=== PATIENT | female | born 1955 | race Caucasian/White ===

== ENCOUNTER 2017-01-10 19:30 | Emergency (ER) | payer OTHER ==
[~2017-01-10] VITALS: Ht 160 cm; Wt 67.5 kg
[~2017-01-10 19:30] MED LIST: AMLO1CAP6 PO; CLON-379 PO; SYN75 PO
[2017-01-10 19:33] VITALS: Ht 160 cm; Wt 67.5 kg
--- NOTE | 2017-01-10 20:56 | RADRPT ---
PROCEDURE: XR Chest. CLINICAL INDICATION: Chest pain after a fall. TECHNIQUE: Single frontal view of the chest was obtained. COMPARISON: None FINDINGS: The soft tissues are normal. Film is underpenetrated which limits bone detail. A rib fracture is s uspected, a rib series should be performed. The heart, cardiomediastinal silhouette and hilar struc tures are normal. The pulmonary vasculature is normal. There is a left-sided aorta. There is atelec tasis in the right lower lobe. No pneumothorax is identified. The costophrenic angles are poorly v isualized and pleural effusions are not excluded. IMPRESSION: 1. Limited chest x-ray due to underpenetration of the film. 2. Right middle and right lower lobe atelectasis. 3. No pneumothorax is identified. Small pleural effusions hemathoraces or rib fracture are not exc luded in this setting. RPTAT:AAJJ Physician Franc Date Time Electronically viewed and signed by Physician Franc on 01/10/2017 20:56 JARRELL/
--- NOTE | 2017-01-10 21:01 | RADRPT ---
PROCEDURE: XR ribs . CLINICAL INDICATION: Chest wall pain after a fall. TECHNIQUE: AP and oblique views of the right ribs were obtained. COMPARISON: None FINDINGS: There is apparent elevation of the right diaphragm. The bony elements are rarefied. No pneumothora x is identified. No acute rib fracture is noted but portions of the ribs are poorly visualized due to underpenetration of the radiograph. No pleural effusion is noted. IMPRESSION: 1. Expiratory phase radiograph with elevation of the right diaphragm. 2. No rib fracture or pneumothorax is identified. 3. Rarefaction of the bony elements. 4. The lower right ribs are not fully evaluated on this study due to underpenetration of the radiog raph. RPTAT:AAJJ Physician Franc Date Time Electronically viewed and signed by Physician Franc on 01/10/2017 21:00 JARRELL/
[2017-01-10] MEDS ORDERED: NAPR-260 PO (21:08)
--- NOTE | 2017-01-10 21:34 | ERD ---
ER Documentation Chief Complaint Date/Time DATE: 01/10/17 TIME: 21:30 Chief Complaint sp ground level fall since 3 days ago, back pain, right uper rib pain HPI Patient is a 7-year-old female with past medical history of hypertension and hypothyroidism who presents to the ED with right sided chest wall pain and rib pain after sustaining a fall 3 days ago. Patient states that she was carrying her purse and tripped over the sidewalk and fell on her right side. She denies hitting her head, passing out or losing consciousness. Denies headache or dizziness. States that she has pain on the right side of her ribs. She states that when she takes a deep breath and she has pain. Denies chest pain or difficulty breathing or shortness of breath. Denies abdominal pain, nausea, vomiting or diarrhea. She is taking Tylenol and Voltaren gel which is helped with her symptoms. Denies leg pain or leg swelling. She has no other complaints per ROS All systems reviewed and are negative except as per history of present illness. Medications Home Meds Active Scripts Naproxen* (Naprosyn*) 500 Mg Tablet, 500 MG PO BID Y for PAIN AND/OR INFLAMMATION, #30 TAB Prov:CHERELLE OSPINA PA-C 01/10/17 Reported Medications Levothyroxine Sodium* (Synthroid*) 75 Mcg Tablet, 75 MCG PO DAILY 01/18/13 Clonidine Hcl* (Clonidine Hcl*) 0.1 Mg Tab, 0.1 MG PO TID Y 01/18/13 Amlodipine-Benazepril (Lotrel) 1 Cap Capsule, 1 CAP PO BID 01/18/13 Allergies Allergies: Coded Allergies: Sulfa (Sulfonamide Antibiotics) (Unverified Allergy, Severe, 03/29/11) Uncoded Allergies: [id number] (SULFA (SULFONAMIDE ANTIBIOTICS)) (Allergy, Mild, 11/11/10) PMhx/Soc History of Surgery: Yes (C-sectionx2) Anesthesia Reaction: No Hx Neurological Disorder: No Hx Respiratory Disorders: No Hx Cardiac Disorders: Yes (HTN) Hx Psychiatric Problems: No Hx Miscellaneous Medical Probl: Yes (Thrombocytopenia.) Hx Alcohol Use: No Hx Substance Use: No Hx Tobacco Use: No Smoking Status: Never smoker FmHx Family History: No coronary disease, No diabetes, No other Physical Exam Vitals Vital Signs Date Time Temp Pulse Resp B/P Pulse Ox O2 Delivery O2 Flow Rate FiO2 01/10/17 19:33 97.8 80 20 156/80 100 Physical Exam GENERAL: Well-developed, well-nourished female. Appears in no acute distress. HEAD: Normocephalic, atraumatic. EYES: Pupils are equally reactive bilaterally. EOMs grossly intact. No conjunctival erythema. ENT: Moist mucous membranes. No uvula deviation. No kissing tonsils. No exudates. NECK: Supple. No lymphadenopathy or thyromegaly. No meningismus. negative kernig. negative brudinski. LUNG: Clear to auscultation bilaterally. No rhonchi, wheezing, rales or coarse breath sounds. Tenderness to the lateral side of the right breast near ribs. No step-offs or deformities. No erythema. No fluctuance. HEART: Regular rate and rhythm. No murmurs, rubs or gallops. Extremities: Equal pulses bilaterally. No peripheral clubbing, cyanosis or edema. No unilateral leg swelling. NEUROLOGIC: Alert and oriented. Moving all four extremities. 5/5 strength in all extremities. Normal speech. Steady gait. SKIN: Normal color. Warm and dry. No rashes or lesions. Capillary refill < 2 seconds Procedures/MDM ER COURSE: I kept the patient and/or family informed of laboratory and diagnostic imaging results throughout the emergency room course. IMAGING STUDIES [place] [address] Radiology Main Line: [phone] DIAGNOSTIC IMAGING REPORT Patient: JIGAR DUONG : 1955 Age: 61 Sex: F [id number] DOS: 01/10/172021 Ordering MD: CHERELLE OSPINA PA-C Location: [facility] Room/Bed: PROCEDURE: XR Chest. CLINICAL INDICATION: Chest pain after a fall. TECHNIQUE: Single frontal view of the chest was obtained. COMPARISON: None FINDINGS: The soft tissues are normal. Film is underpenetrated which limits bone detail. A rib fracture is suspected, a rib series should be performed. The heart, cardiomediastinal silhouette and hilar structures are normal. The pulmonary vasculature is normal. There is a left-sided aorta. There is atelectasis in the right lower lobe. No pneumothorax is identified. The costophrenic angles are poorly visualized and pleural effusions are not excluded. IMPRESSION: 1. Limited chest x-ray due to underpenetration of the film. 2. Right middle and right lower lobe atelectasis. 3. No pneumothorax is identified. Small pleural effusions hemathoraces or rib fracture are not excluded in this setting. RPTAT:AAJJ Physician Franc Date Time Electronically viewed and signed by John Paul Sanon Physician on 01/10/2017 20:56 JM/ CC: CHERELLE OSPINA PA-C [place] [address] Radiology Main Line: [phone] DIAGNOSTIC IMAGING REPORT Patient: JIGAR DUONG : 1955 Age: 61 Sex: F MR #: [id number] DOS: 01/10/172021 Ordering MD: CHERELLE OSPINA PA-C Location: [facility] Room/Bed: PROCEDURE: XR ribs . CLINICAL INDICATION: Chest wall pain after a fall. TECHNIQUE: AP and oblique views of the right ribs were obtained. COMPARISON: None FINDINGS: There is apparent elevation of the right diaphragm. The bony elements are rarefied. No pneumothorax is identified. No acute rib fracture is noted but portions of the ribs are poorly visualized due to underpenetration of the radiograph. No pleural effusion is noted. IMPRESSION: 1. Expiratory phase radiograph with elevation of the right diaphragm. 2. No rib fracture or pneumothorax is identified. 3. Rarefaction of the bony elements. 4. The lower right ribs are not fully evaluated on this study due to underpenetration of the radiograph. RPTAT:AAJJ Physician Franc Date Time Electronically viewed and signed by Physician Franc on 01/10/2017 21:00 JM/ CC: CHERELLE OSPINA PA-C MEDICAL DECISION MAKING: This is a 61-year-old female who presents with pain to the right side of her ribs. Vital signs were reviewed. Patient is afebrile. Patient is not hypoxic. Patient is not toxic or ill-appearing. X-rays of by radiologist unremarkable. Patient likely has muscle strain versus muscle sprain versus rib contusion Low suspicion for ACS, PE, AAA, dissection, DVT. Low suspicion for dislocation, fracture, septic joint, compartment syndrome, osteomyelitis, cellulitis, avascular necrosis, neurological injury, vascular injury, tendon laceration. DISCHARGE: At this time, patient is stable for discharge and outpatient management with no new complaints during the ER course. [facility].. Patient will be discharged home with instructions to recheck for new or worsening symptoms such as fever, nausea, weakness, LOC and to follow up with primary care in the next 1-2 days. Patient was advised to return to the ER for any new or worsening symptoms. Plan was discussed and patient and/or family understands and agrees. Home instructions were given. Departure Diagnosis: Primary Impression: Rib pain Condition: Stable Patient Instructions: Rib Contusion Additional Instructions: Call your primary care doctor TOMORROW for an appointment during the next 1-2 days.See the doctor sooner or return here if your condition worsens before your appointment time. CHERELLE OSPINA PA-C January 10, 2017 21:34
== END 2017-01-10 21:49 | disposition home or self-care (01) ==
LOC: FTE 19:30
DX: R07.81 Pleurodynia (principal); I10 Essential (primary) hypertension; E03.9 Hypothyroidism, unspecified
CPT/HCPCS: 71010; 71100

== ENCOUNTER 2017-10-03 06:40 | Emergency (ER) | END 2017-10-03 10:58 | disposition home or self-care (01) ==